=== PATIENT | male | born 1995 | race Caucasian/White ===

== ENCOUNTER 2019-12-10 14:24 | Outpatient (REF) | payer OTHER, SELFPAY ==
--- NOTE | 2019-12-10 14:47 | XR_ITS ---
EXAMINATION: XR FINGER, RIGHT CLINICAL INFORMATION: Strain of muscle, fascia, and tendon COMPARISON: None TECHNIQUE: 3 views of the right hand fourth digit. FINDINGS: No fracture or dislocation. Alignment is anatomic. Joint spaces are maintained. The soft tissues are unremarkable. IMPRESSION: Normal finger radiographs.
== END 2019-12-10 14:25 | disposition home or self-care (01) ==
LOC: HO.HMGCX 14:24
PROVIDERS: PCP Internal Medicine; Visit Provider Internal Medicine
DX: S66.911A Strain of unspecified muscle, fascia and tendon at wrist and hand level, right hand, initial encounter (principal)
CPT/HCPCS: 73140

== ENCOUNTER 2021-03-28 14:40 | Outpatient (REF) | payer OTHER, SELFPAY ==
--- NOTE | ~2021-03-28 | US_ITS ---
EXAMINATION: US SCROTUM See ultrasound scrotum Doppler report from the same day.
--- NOTE | ~2021-03-28 | US_ITS ---
EXAMINATION: US SCROTUM CLINICAL INFORMATION: Left-sided pain. COMPARISON: None TECHNIQUE: A sonogram of the scrotum was performed assessing medina-scale appearance and color Doppler flow. Spectral Doppler analysis of the arterial and venous flow were performed in the testes bilaterally. FINDINGS: RIGHT: Right testicle measures 5.9 x 2.4 x 3.3 cm, volume 24 mL. No focal testicular parenchymal lesions are visualized. Spectral Doppler analysis of the arterial and venous flow is normal in the right testis. Right epididymal head is normal in size. No right varicocele is seen. Right epididymal Doppler flow is normal. There is a small right hydrocele. There is a right small tunical calcification probably representing a scrotal courtney. LEFT: Left testicle measures 5.6 x 1.9 x 3.8 cm, volume 21 mL. There are several small echogenic foci questionable for small calcifications. No other focal testicular parenchymal lesions are visualized. Spectral Doppler analysis of the arterial and venous flow is normal in the left testis. Left epididymal head is enlarged. There is a 0.7 x 1.0 x 1.3 cm complex epididymal head cyst. No left varicocele is seen. Left epididymal Doppler flow is normal. There is a small left hydrocele. There is a left tunical calcification or scrotal courtney. US/US scrotum doppler IMPRESSION: Question small calcifications in the left testicle. No focal mass seen. 0.7 x 1 x 1.3 cm complex left epididymal head cyst. Small bilateral hydroceles and tunical calcification or scrotal pearls. This can be seen with old trauma or infection.
== END 2021-03-28 14:41 | disposition home or self-care (01) ==
LOC: HO.HMGCX 14:40
PROVIDERS: PCP Internal Medicine; Visit Provider Internal Medicine
DX: N50.812 Left testicular pain (principal)
CPT/HCPCS: 76870; 93975

== ENCOUNTER → 2021-11-15 14:02 | Outpatient (REF) | payer OTHER, SELFPAY ==
--- NOTE | 2021-11-15 14:08 | CA_ITS ---
Transthoracic Echocardiogram Patient (Last, First, Middle): Barney Gordon B Gender: Male Date of : 1995 Age: 26 Procedure Date: 11/15/2021 Procedure Type: Transthoracic Echocardiogram Location: OP Height: 172.72 cm Weight: 79.38 kg BSA: 1.93 m2 Heart Rate: bpm BP: 110 / 70 mmHg Senior Front End Developer: TO Referring MD: Sandra Lanza MD Symptoms: [id number] SYNCOPE AND COLLAPSE Study Quality: Adequate ECG Rhythm: Sinus Conclusions: - The left ventricular systolic function is normal. The calculated ejection fraction is 63% by biplane method. - No obvious valvular pathology seen on this study. Findings Left Ventricle Normal left ventricular cavity size. There is normal left ventricular wall thickness. The left ventricular systolic function is normal. The calculated ejection fraction is 63% by biplane method. There is no evidence of regional wall motion abnormalities. Diastolic function is normal for age. Right Ventricle Normal right ventricular cavity size and systolic function. Atria Both atria are normal in size. Aortic Valve There is a normal trileaflet aortic valve. There is no aortic valve stenosis. There is no aortic valve regurgitation. Mitral Valve The mitral valve appears normal. There is no mitral valve regurgitation. There is no mitral valve stenosis. Pulmonic Valve The pulmonic valve is likely normal. Tricuspid Valve Normal tricuspid valve structure. There is trace tricuspid valve regurgitation. There is no evidence of pulmonary hypertension. Great Vessels The asc aorta is normal in size. Venous The inferior vena cava is normal in size and collapses greater than 50% with inspiration. Pericardium/Pleural There is no evidence of pericardial effusion. Prior Study Comparison No prior study available for comparison. Recommendations, Care & Conclusions No obvious valvular pathology seen on this study. Measurements 2D Linear Measurements IVSd: 1.00 0.6-0.9/0.6-1.0 cm LVIDd: 4.95 3.9-5.3/4.2-5.9 cm LVIDd Index: 2.56 2.4-3.2/2.2-3.1 cm/m2 LVIDs: 2.73 2.0-3.6 cm LVPWd: 0.96 0.7-1.1 cm LA Diam: 3.00 2.7-3.8/3.0-4.0 cm LAIDs Index: 1.55 1.5-2.3 cm/m2 LV Mass: 217.00 67-162/88-224 g LV Mass Index: 112.43 43-95/49-115 g/m2 LVOT Diam: 2.10 3.0+(-)1.3 cm 2D Systolic Function EF 4C: 59.20 >55% EF 2C: 64.50 >55% EF BiP: 62.90 >55% Mitral Valve MV Pk E: 0.72 MV PK A: 0.35 MV Decel Time: 251.00 E/A: 2.10 E'Lateral: 14.40 E'Medial: 10.60 E/E' Med: 6.80 E/E' Lat: 5.00 PHT: 73.00 MVA PHT: 3.01 Decel Mcnairy: 2.96 Aortic Valve AoV Pk Fam: 1.31 AoV Mn Fam: 0.92 AoV VTI: 0.25 AoV Pk Grad: 7.00 Aov Mn Grad: 4.00 CATRACHO Cont.VTI: 2.57 LVOT LVOT Pk Fam: 1.02 LVOT Mn Fam: 0.64 LVOT VTI: 0.19 LVOT Pk Grad: 4.00 LVOT Mn Grad: 2.00 LVOT Diam: 2.10 LVOT Area: 3.46 Diastolic Function MV Pk E: 0.72 MV Pk A: 0.35 E/A: 2.10 E'Medial: 10.60 E/E' Med: 6.80 E' Laterial: 14.40 E/E' Lat: 5.00 Right Ventricle TAPSE (mm): 19.00 TVS' Fam: 12.00 Tricuspid Valve TR Pk Fam: 1.91 TR Pk Grad: 15.00 RA Press: 3.00 RVSP: 18.00 Great Vessels Aorta Sinus of Valsalva: 3.86 2.0-3.[address] Ridge: 2.73 1.7-3.4 cm Ao Asc: 3.20 2.1-3.4 cm Updated in Other Vendor System with Status of Final Zeus Kirkland MD electronically signed on 11/16/2021 10:23:16 AM with status of Final
== END ==
LOC: HO.CARD 14:02
PROVIDERS: PCP Internal Medicine; Visit Provider Psychiatry & Neurology Neurology
DX: R55 Syncope and collapse (principal)
CPT/HCPCS: 93306

== ENCOUNTER → 2022-06-04 14:57 | Outpatient (BNVA) | payer OTHER, SELFPAY | PROVIDERS: PCP Internal Medicine; Visit Provider Nurse Practitioner Family | DX: Z30.09 Encounter for other general counseling and advice on contraception (principal); F41.8 Other specified anxiety disorders | CPT/HCPCS: 99202 ==

== ENCOUNTER → 2022-06-28 13:31 | Outpatient (BNVA) | payer OTHER, SELFPAY | PROVIDERS: PCP Internal Medicine; Visit Provider Urology | DX: Z30.2 Encounter for sterilization (principal); F41.8 Other specified anxiety disorders | CPT/HCPCS: 55250 ==

== ENCOUNTER → 2022-07-24 08:00 | Outpatient (BNVA) | payer OTHER, SELFPAY | PROVIDERS: PCP Internal Medicine; Visit Provider Nurse Practitioner Family | DX: G47.00 Insomnia, unspecified (principal); R06.83 Snoring; R40.0 Somnolence | CPT/HCPCS: 99202 ==